=== PATIENT | female | born 1985 | race Two or more races ===

== ENCOUNTER 2018-08-02 10:28 | Emergency (ER) | payer OTHER ==
[2018-08-02] MEDS ORDERED: NS 1,000 ML IV ONE (11:02)
[2018-08-02] MEDS ORDERED: LORazepam 2 MG/ML INJ IVP ONE (11:02)
[2018-08-02] MEDS ORDERED: DEXAMETHASONE 10 MG/ML VIAL IVP ONE (11:02)
--- NOTE | 2018-08-02 11:02 | EDPHY ---
H & P Stated Complaint: BAILEY, n/v Time Seen by Provider: 08/02/18 10:57 HPI/ROS: HPI: This is a 32-year-old female who presents with Chief Complaint: Headache, nausea, vomiting Location: Back of head, base of neck Quality: Pain Duration: Since yesterday evening Signs and Symptoms: no fever, + nausea, + vomiting, no photophobia, no noise sensitivity, no neck stiffness, no ear pain, no tinnitus, no nasal congestion, no sinus pressure, no weakness, no radiation, no aura, no radiation, no dizziness Timing: Acute Severity: Moderate Context: History of migraine headaches presents with sudden onset of headache that occurred at the base of her neck and back of her head that radiates up into the front part of her head that started yesterday evening. She reports that she feels nauseous and has vomited twice. She denies any photophobia, noise sensitivity, fever, neck stiffness, nasal congestion, ear pain. She has had no trauma or injury and denies radiculopathy. No primary care provider. Negative family history for aneurysm. Modifying Factors: None Comment: ROS: A comprehensive 10 system review of systems is otherwise negative aside from elements mentioned in the history of present illness. MEDICAL/SURGICAL/SOCIAL HISTORY: Medical history: Peptic ulcer. Takes oral control pills. Surgical history: Denies Social history: Former smoker. Recently moved to the area from [place]. 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 Family history noncontributory. CONSTITUTIONAL: Tearful, overweight adult white female, awake and alert, no obvious distress HEENT: Atraumatic and normocephalic, PERRL, EOMI. Nares patent; no rhinorrhea; no nasal mucosal edema. Tympanic membranes clear. Oropharynx clear, no exudate and moist pink mucosa. Airway patent. No lymphadenopathy. No meningismus. Cardiovascular: Normal S1/S2, regular rate, regular rhythm, without murmur rub or gallop. PULMONARY/CHEST: Symmetrical and nontender. Clear to auscultation bilaterally. Good air movement. No accessory muscle usage. ABDOMEN: Soft, nondistended, nontender, no rebound, no guarding, no peritoneal signs, no masses or organomegaly. No CVAT. EXTREMITIES: 2/2 pulses, strength 5/5, no deformities, no clubbing, no cyanosis or edema. NEUROLOGICAL: no focal neuro deficits. GCS 15. Cranial nerves 2-12 grossly intact. Speech normal. SKIN: Warm and dry, no erythema. no rash. Good capillary refill. Source: Patient Exam Limitations: No limitations - Personal History Current Tetanus/Diphtheria Vaccine: Unsure Current Tetanus Diphtheria and Acellular Pertussis (TDAP): Unsure - Medical/Surgical History Hx Asthma: No Hx Chronic Respiratory Disease: No Hx Diabetes: No Hx Cardiac Disease: No Hx Renal Disease: No Hx Cirrhosis: No Hx Alcoholism: No Hx HIV/AIDS: No Hx Splenectomy or Spleen Trauma: No Other PMH: peptic ulcer, - Social History Smoking Status: Former smoker Constitutional: Initial Vital Signs Temperature (C) 37 C 08/02/18 10:42 Heart Rate 94 08/02/18 10:42 Respiratory Rate 20 08/02/18 10:42 Blood Pressure 210/165 H 08/02/18 10:42 O2 Sat (%) 97 08/02/18 10:42 O2 Delivery Mode Room Air Allergies/Adverse Reactions: No Known Allergies Allergy (Unverified 08/02/18 10:41) Home Medications: Medication Instructions Recorded Acet/Caffeine/Buta Fioricet 1 each PO Q6 PRN #10 tab 08/02/18 [Fioricet (*)] Bcp 08/02/18 Ondansetron Odt [Zofran Odt 4 mg 4 mg PO Q4 PRN #12 tab 08/02/18 (*)] Medical Decision Making ED Course/Re-evaluation: Vital signs reviewed and show elevated blood pressure upon arrival. IV access and medications ordered Patient given 1 L normal saline, IV Ativan 1 mg, IV Decadron 10 mg, IV promethazine 12.5 mg, IV Toradol 30 mg Patient's headache is likely tension versus migraine No neurological deficits to warrant imaging in the emergency room 1222: Reassessed patient who reports moderate relief of symptoms. Walking back and forth to the bathroom without difficulty. Blood pressure 169/128 1310: reassess patient with even more improvement in symptoms. Blood pressure 137/88 Given a referral to primary care provider and Neurology. Patient requesting headache and nausea medications This patient was seen under the supervision of my secondary supervising physician. I evaluated care for this patient with attending. Discussed this patient with Dr. Villafana. Differential Diagnosis: Headache including but not limited to subarachnoid hemorrhage, migraine headache , tension headache and infectious causes such as meningitis, pharyngitis and sinusitis. - Data Points Medications Given: Discontinued Medications Dexamethasone (Decadron Injection) 10 mg IVP EDNOW ONE Stop: 08/02/18 11:03 Last Admin: 08/02/18 11:31 Dose: 10 mg Sodium Chloride (Ns) 1,000 mls @ 0 mls/hr IV ONCE ONE; Wide Open PRN Reason: Protocol Stop: 08/02/18 11:03 Last Admin: 08/02/18 11:28 Dose: 1,000 mls Ketorolac Tromethamine (Toradol) 30 mg IVP EDNOW ONE Stop: 08/02/18 12:27 Last Admin: 08/02/18 12:29 Dose: 30 mg Lorazepam (Ativan Injection) 1 mg IVP EDNOW ONE Stop: 08/02/18 11:03 Last Admin: 08/02/18 11:29 Dose: 1 mg Promethazine HCl (Phenergan) 12.5 mg IVP ONCE ONE Stop: 08/02/18 11:04 Last Admin: 08/02/18 11:31 Dose: 12.5 mg Departure - Departure Disposition: Home, Routine, Self-Care Clinical Impression: Tension-type headache Qualifiers: Headache chronicity pattern: acute headache Intractability: not intractable Qualified Code(s): G44.209 - Tension-type headache, unspecified, not intractable Condition: Good Instructions: Tension Headache (ED), Acute Headache (ED) Additional Instructions: Rest as much as possible until you are feeling better. Consume a minimum of 8-10 glasses of water or electrolyte fluid replacement drinks that include Gatorade, Powerade, Pedialyte. Eat a bland diet for the next 48 hours and then slowly advance as tolerated. Take Zofran 1 tab every 4 hours as needed for nausea, vomiting. Take Tylenol 650 mg every 4 hr and/or ibuprofen 600 mg with food every 8 hr as needed for pain, headache. Take Fioricet every 6 hr as needed for headache not relieved by Tylenol or ibuprofen. Establish care with primary care provider. A referral has been provided. Return to the ER immediately if you have progressive headaches, neurologic deficits, gait abnormality, visual disturbance, slurred speech, or any other symptom that concerns you. Referrals: Moose Bello DO [Doctor of Osteopathy] - As per Instructions Erich Shah DO [Medical Doctor] - Follow Up Only If Needed Stand Alone Forms: Work Excuse Prescriptions: Acet/Caffeine/Buta Fioricet [Fioricet (*)] 1 each PO Q6 PRN #10 tab PRN Reason: Headache Ondansetron Odt [Zofran Odt 4 mg (*)] 4 mg PO Q4 PRN #12 tab PRN Reason: Nausea/Vomiting, Use 1st
[2018-08-02] MEDS ORDERED: PROMETHAZINE HCL 25 MG/ML INJ IVP ONE (11:03)
[2018-08-02] MEDS ORDERED: KETOROLAC 30 MG/1 ML SDV IVP ONE (12:26)
[2018-08-02 13:02] VITALS: BP 137/88
== END 2018-08-02 13:16 | disposition home or self-care (01) ==
DX: G44.209 Tension-type headache, unspecified, not intractable (principal); E86.9 Volume depletion, unspecified
CPT/HCPCS: 96374; J1100; J1885; J2060; J2550

== ENCOUNTER 2018-08-05 12:28 | Emergency (ER) | payer OTHER ==
--- NOTE | 2018-08-05 14:02 | EDPHY ---
HPI/HX/ROS/PE/MDM Narrative: CHIEF COMPLAINT: Headache HPI: This patient is a 32 year old female with history of peptic ulcers. She was evaluated several days ago, 08/02/18, in this emergency department for headache. This has persisted despite medication, though it did decrease in severity. She saw her PCP Friday and switched medications to Sumatriptan, and has been taking this as prescribed. She has not yet undergone any imaging of her head. Today, around noon, she had "sudden debilitating pain [...] like my head exploded, the worst pain of my life". Her symptoms are bilateral equally. She endorses nausea and a sensation of shaking. She does not generally get headaches and has not had any similar symptoms prior to the past week. She denies ever having symptoms so severe as this afternoon during this past week. She denies family history of headaches. No fever or chills. No chest pain, shortness of breath, diarrhea, urinary complaints, or other associated symptoms. REVIEW OF SYSTEMS: A comprehensive 10 system review of systems is otherwise negative aside from elements mentioned in the history of present illness and medical decision making. PMH: Peptic ulcers. SOCIAL HISTORY: Employed in [employer]. Friends at bedside. Does not abuse tobacco, drugs, or alcohol. PHYSICAL EXAM: General:Patient is alert, crying, curled up in bed. Mildly obese. ENT:Eyes are normal to inspection. ENT inspection normal. Neck: Normal inspection. Full range of motion. Respiratory:No respiratory distress. Breath sounds normal bilaterally. Cardiovascular: Regular rate and rhythm. Strong peripheral pulses. Normal cap refill. Abdomen:The abdomen is nontender to palpation. There are no peritoneal signs. There are normal bowel sounds. Back: Normal to inspection. No tenderness to palpation. Skin: Normal color. No rash. Warm and dry. Extremities: Normal appearance. Full range of motion. Neuro: Oriented x3. Normal motor function. Normal sensory function. (Max Cobian) ED Course: 32 year old female presents with acute exacerbation of headache and nausea, the worst she has ever felt. She is tearful throughout my interview and exam. Patient does not seem meningitic on exam. Plan for CT head without contrast. Plan for labs including CBC, chemistries, BHCG. Plan to administer 1mg IV Dilaudid and 1L IV NS for symptom relief. 15:00 Care of this patient transferred to Dr. Lopez at shift change pending CT results. (Max Cobian) I took over care of this patient at 3:00 p.m.. This patient presents with return of a headache which she describes as severe associated with nausea. She was seen in the emergency department for similar complaint of headache on August 02. Please see above for further details. We are currently awaiting the results of his CT head. CT head without contrast: Essentially negative. The ventricles do appear slightly tight which may coincide with idiopathic intracranial hypertension. Results were discussed with staff radiologist Dr. Josue Isaac. 3:50 p.m., I re-evaluated the patient. She is feeling better but still has a headache. Repeat neurologic Assessment is nonfocal. Be given IV Benadryl, IV Reglan, Decadron and Toradol. I discussed the results of her CT scan with her. I discussed the need for lumbar puncture. She consents. Lumbar puncture will be followed by noncontrast MRI of the brain and MR venogram of the brain. This will be done primarily to evaluate for thrombosis. Patient consents to workup. Procedure: Lumbar puncture. Indication: Worst headache of life. After verbal informed consent from patient explaining the risks including infection, bleeding, and neurologic damage, a lumbar puncture was performed after the patient was prepped and draped in the usual fashion. The back was anesthetized with 1% lidocaine. Opening pressures 190 mm of mercury, upper end of normal. Approximately 12 cc of clear fluid was obtained. Opening pressure was not obtained. There were no complications. The procedure was performed by myself. MRI brain and MR venogram of brain negative studies. No evidence of thrombosis. No papilledema. Results were discussed with Dr. Cheikh Figueroa. 7:20 p.m., the patient was re-evaluated, resting comfortably at this time. Repeat neurologic Assessment is nonfocal. No significant photophobia. She states that her headache has improved significantly. She still complains of a mild headache. I discussed the results of her emergency department workup with her in detail. All of her questions were answered. She does feel comfortable going home at this time and I feel she is safe for discharge. She does have a friend who can come and pick her up. She has a follow-up appointment scheduled with Neurology for next Friday. Return to emergency department precautions were thoroughly reviewed with her. She was up and ambulatory around the emergency department with a normal gait. She was discharged home in good condition with a friend. (Leonarda Lopez) - Data Points Imaging Results: Imaging Impressions Head CT 08/05/18 14:02 Impression: Negative. No intracranial hemorrhage, mass, or sinus disease. Findings discussed with Emergency Department physician, Leonarda Avendaño M.D., on August 05, 2018 at 1533. Brain MRI 08/05/18 16:27 Impression: 1. Normal MRI of the brain without and with contrast. If symptoms worsen, additional imaging may be necessary. Findings discussed with Leonarda Lopez MD at 18:25 hour, 08/05/2018. Head MRA 08/05/18 16:32 Impression: Normal MR venogram of the head. No evidence of sinus thrombosis. Findings discussed with Leonarda Lopez MD at 18:22 hour, 08/05/2018. Laboratory Results: Laboratory Results 08/05/18 14:28 08/05/18 14:28 08/05/18 08/05/18 08/05/18 16:25 16:24 14:28 WBC RBC Hgb Hct MCV MCH MCHC RDW Plt Count MPV Neut % (Auto) Lymph % (Auto) [place] % (Auto) Eos % (Auto) Baso % (Auto) Nucleat RBC Rel Count Absolute Neuts (auto) Absolute Lymphs (auto) Absolute Monos (auto) Absolute Eos (auto) Absolute Basos (auto) Absolute Nucleated RBC Immature Gran % Immature Gran # Sodium Potassium Chloride Carbon Dioxide Anion Gap BUN Creatinine Estimated GFR Glucose Calcium Beta HCG, Qual NEGATIVE CSF Tube Number 4 1 CSF Appearance CLEAR CLEAR (CLEAR) (CLEAR) CSF Color COLORLESS COLORLESS (COLORLESS) (COLORLESS) CSF Supernatant TNP TNP CSF WBC 4 /mm3 /mm3 4 /mm3 /mm3 (0-5) (0-5) CSF RBC 0 /mm3 /mm3 4 /mm3 H /mm3 (0-0) (0-0) CSF Glucose 58 mg/dL mg/dL (50-75) CSF Total Protein 54 mg/dL mg/dL (12-60) 08/05/18 08/05/18 14:28 14:28 WBC 9.49 10^3/uL 10^3/uL (3.80-9.50) RBC 4.95 10^6/uL 10^6/uL (4.18-5.33) Hgb 15.6 g/dL g/dL (12.6-16.3) Hct 45.0 % % (38.0-47.0) MCV 90.9 fL fL (81.5-99.8) MCH 31.5 pg pg (27.9-34.1) MCHC 34.7 g/dL g/dL (32.4-36.7) RDW 12.0 % % (11.5-15.2) Plt Count 199 10^3/uL 10^3/uL (150-400) MPV 11.8 fL H fL (8.7-11.7) Neut % (Auto) 67.0 % % (39.3-74.2) Lymph % (Auto) 24.9 % % (15.0-45.0) [place] % (Auto) 6.3 % % (4.5-13.0) Eos % (Auto) 1.1 % % (0.6-7.6) Baso % (Auto) 0.3 % % (0.3-1.7) Nucleat RBC Rel Count 0.0 % % (0.0-0.2) Absolute Neuts (auto) 6.36 10^3/uL 10^3/uL (1.70-6.50) Absolute Lymphs (auto) 2.36 10^3/uL 10^3/uL (1.00-3.00) Absolute Monos (auto) 0.60 10^3/uL 10^3/uL (0.30-0.80) Absolute Eos (auto) 0.10 10^3/uL 10^3/uL (0.03-0.40) Absolute Basos (auto) 0.03 10^3/uL 10^3/uL (0.02-0.10) Absolute Nucleated RBC 0.00 10^3/uL 10^3/uL (0-0.01) Immature Gran % 0.4 % % (0.0-1.1) Immature Gran # 0.04 10^3/uL 10^3/uL (0.00-0.10) Sodium 138 mEq/L mEq/L (135-145) Potassium 3.6 mEq/L mEq/L (3.5-5.2) Chloride 107 mEq/L mEq/L (97-110) Carbon Dioxide 20 mEq/l L mEq/l (22-31) Anion Gap 11 mEq/L mEq/L (6-14) BUN 15 mg/dL mg/dL (7-23) Creatinine 0.6 mg/dL mg/dL (0.6-1.0) Estimated GFR > 60 Glucose 93 mg/dL mg/dL (70-100) Calcium 9.9 mg/dL mg/dL (8.5-10.4) Beta HCG, Qual CSF Tube Number CSF Appearance CSF Color CSF Supernatant CSF WBC CSF RBC CSF Glucose CSF Total Protein Medications Given: Discontinued Medications Dexamethasone (Decadron Injection) 10 mg IVP EDNOW ONE Stop: 08/05/18 15:55 Last Admin: 08/05/18 16:15 Dose: 10 mg Diphenhydramine HCl (Benadryl Injection) 25 mg IVP EDNOW ONE Stop: 08/05/18 15:55 Last Admin: 08/05/18 16:13 Dose: 25 mg Hydromorphone HCl (Dilaudid) 1 mg IVP EDNOW ONE Stop: 08/05/18 14:04 Last Admin: 08/05/18 14:45 Dose: 1 mg Sodium Chloride (Ns) 1,000 mls @ 0 mls/hr IV EDNOW ONE; Wide Open PRN Reason: Protocol Stop: 08/05/18 14:04 Last Admin: 08/05/18 14:26 Dose: 1,000 mls Ketorolac Tromethamine (Toradol) 30 mg IVP EDNOW ONE Stop: 08/05/18 15:55 Last Admin: 08/05/18 16:13 Dose: 30 mg Metoclopramide HCl (Reglan Injection) 10 mg IVP EDNOW ONE Stop: 08/05/18 15:55 Last Admin: 08/05/18 16:14 Dose: 10 mg Ondansetron HCl (Zofran) 4 mg IVP EDNOW ONE Stop: 08/05/18 16:20 Last Admin: 08/05/18 16:23 Dose: 4 mg Microbiology Results: MICROBIOLOGY 08/05/18 16:24 Cerebral Spinal Fluid Gram Stain - Final General Time Seen by Provider: 08/05/18 13:56 Initial Vital Signs: Initial Vital Signs Temperature (C) 36.3 C 08/05/18 12:34 Heart Rate 65 08/05/18 12:34 Respiratory Rate 20 08/05/18 12:34 Blood Pressure 206/135 H 08/05/18 12:34 O2 Sat (%) 98 08/05/18 12:34 O2 Delivery Mode Room Air Allergies/Adverse Reactions: No Known Allergies Allergy (Verified 08/05/18 12:34) Home Medications: Medication Instructions Recorded Acet/Caffeine/Buta Fioricet 1 each PO Q6 PRN #10 tab 08/02/18 [Fioricet (*)] Bcp 08/02/18 Ondansetron Odt [Zofran Odt 4 mg 4 mg PO Q4 PRN #12 tab 08/02/18 (*)] Departure - Departure Disposition: Home, Routine, Self-Care Clinical Impression: Headache Condition: Good Instructions: Acute Headache (ED) Additional Instructions: Read and follow provided instructions. Follow-up with your neurologist as scheduled next Friday as scheduled. Keep yourself well hydrated. Return to the emergency department for worsening headache, neck pain, nausea and vomiting, confusion, fever or other serious concerns. Referrals: Patient,NotPresent [Primary Care Provider] - As per Instructions Report Scribed for: aMx Cobian Report Scribed by: Rayne Fairbanks Date of Report: 08/05/18 Time of Report: 14:02 Physician Review and Approval Statement: Portions of this note were transcribed by an ED scribe. I personally performed the history, physical exam, and medical decision making; and confirm the accuracy of the information in the transcribed note.
[2018-08-05] MEDS ORDERED: NS 1,000 ML IV ONE (14:03)
[2018-08-05] MEDS ORDERED: HYDROmorphONE/DILAUDID 2 MG/ML INJ IVP ONE (14:03)
[2018-08-05 14:46] LABS: PLATELET COUNT 199 10^3/uL (150-400)
[2018-08-05] MEDS ORDERED: KETOROLAC 30 MG/1 ML SDV IVP ONE (15:54)
[2018-08-05] MEDS ORDERED: DEXAMETHASONE 10 MG/ML VIAL IVP ONE (15:54)
[2018-08-05] MEDS ORDERED: METOCLOPRAMIDE 10 MG/2 ML VIAL IVP ONE (15:54)
[2018-08-05] MEDS ORDERED: ONDANSETRON 4 MG/2 ML VIAL IVP ONE (16:19)
[2018-08-05] MEDS ORDERED: GADOBUTROL 10 ML VIAL IVP ONE (17:25)
[2018-08-05 19:30] VITALS: BP 162/87
== END 2018-08-05 19:30 | disposition home or self-care (01) ==
PROC: 009U3ZX Drainage of Spinal Canal, Percutaneous Approach, Diagnostic (ICD-10-PCS; principal; 2018-08-05)
DX: R51 Headache (principal); R11.0 Nausea; E86.9 Volume depletion, unspecified
CPT/HCPCS: 96374; A9585; J1100; J1170; J1200; J1885; J2405; J2765

== ENCOUNTER 2018-08-10 19:23 | Observation (INO) | payer OTHER ==
[2018-08-10] MEDS ORDERED: fentaNYL 100 MCG/2 ML INJ IVP ONE ×2 (19:26→21:54)
[2018-08-10] MEDS ORDERED: NS 1,000 ML IV ONE (19:26)
[2018-08-10] MEDS ORDERED: METOCLOPRAMIDE 10 MG/2 ML VIAL IVP ONE (19:28)
[2018-08-10 19:41] LABS: PLATELET COUNT 233 10^3/uL (150-400)
--- NOTE | 2018-08-10 20:55 | EDPHY ---
HPI/HX/ROS/PE/MDM Narrative: CHIEF COMPLAINT:Headache HPI: The patient is a 32-year-old female who I saw several days ago for worst headache of life. She returns by EMS for continued worst headache of life. She describes the pain as severe starting at the bottom of her neck and radiating to the top. She states that this is the exact same character of the pain as her previous to ER visits. She states that headache is made significantly worse by sitting up or standing up. She states that this was the case prior to her LP. She denies fever, neck pain or vision changes. No trauma. She has an appointment as an outpatient with neurology tomorrow but her mother states that she has basically become incapacitated and cannot get out of bed. REVIEW OF SYSTEMS: Aside from elements discussed in the HPI, a comprehensive 10-point review of systems was reviewed and is negative. PMH: Includes mild obesity. No history of brain surgery. SOCIAL HISTORY: Works at a [employer]. Denies drug abuse. PHYSICAL EXAM: General:Patient is alert, yelling in pain. ENT:Eyes are normal to inspection. ENT inspection normal. No photophobia noted. Neck: Normal inspection. Full range of motion. Respiratory:No respiratory distress. Breath sounds normal bilaterally. Cardiovascular: Regular rate and rhythm. Strong peripheral pulses. Normal cap refill. Abdomen:The abdomen is nontender to palpation. There are no peritoneal signs. There are normal bowel sounds. Back: Normal to inspection. No tenderness to palpation. Skin: Normal color. No rash. Warm and dry. Extremities: Normal appearance. Full range of motion. Neuro: Oriented x3. Normal motor function. Normal sensory function. MDM: This patient returns for worst headache of life. She has already had an extremely extensive workup here in the emergency department on her previous visit including CT, MRI and LP, all of which were negative. I do not think repeating these tests will add to the clinical picture. I did consider a post LP headache given the increase in her pain with change of position, but the patient tells me that this element of her headache was present prior to the LP. The etiology of her headache is unknown, but given the severity of her pain and failure of outpatient management, I think she needs admission the hospital for pain control and further workup as well as neurology consultation. - Data Points Laboratory Results: Laboratory Results 08/10/18 19:35 08/10/18 19:35 08/10/18 08/10/18 19:35 19:35 WBC 9.07 10^3/uL 10^3/uL (3.80-9.50) RBC 4.92 10^6/uL 10^6/uL (4.18-5.33) Hgb 15.4 g/dL g/dL (12.6-16.3) Hct 45.1 % % (38.0-47.0) MCV 91.7 fL fL (81.5-99.8) MCH 31.3 pg pg (27.9-34.1) MCHC 34.1 g/dL g/dL (32.4-36.7) RDW 12.0 % % (11.5-15.2) Plt Count 233 10^3/uL 10^3/uL (150-400) MPV 10.5 fL fL (8.7-11.7) Neut % (Auto) 57.6 % % (39.3-74.2) Lymph % (Auto) 34.5 % % (15.0-45.0) [place] % (Auto) 6.1 % % (4.5-13.0) Eos % (Auto) 1.3 % % (0.6-7.6) Baso % (Auto) 0.2 % L % (0.3-1.7) Nucleat RBC Rel Count 0.0 % % (0.0-0.2) Absolute Neuts (auto) 5.22 10^3/uL 10^3/uL (1.70-6.50) Absolute Lymphs (auto) 3.13 10^3/uL H 10^3/uL (1.00-3.00) Absolute Monos (auto) 0.55 10^3/uL 10^3/uL (0.30-0.80) Absolute Eos (auto) 0.12 10^3/uL 10^3/uL (0.03-0.40) Absolute Basos (auto) 0.02 10^3/uL 10^3/uL (0.02-0.10) Absolute Nucleated RBC 0.00 10^3/uL 10^3/uL (0-0.01) Immature Gran % 0.3 % % (0.0-1.1) Immature Gran # 0.03 10^3/uL 10^3/uL (0.00-0.10) Sodium 139 mEq/L mEq/L (135-145) Potassium 3.8 mEq/L mEq/L (3.5-5.2) Chloride 111 mEq/L H mEq/L (97-110) Carbon Dioxide 21 mEq/l L mEq/l (22-31) Anion Gap 7 mEq/L mEq/L (6-14) BUN 21 mg/dL mg/dL (7-23) Creatinine 0.7 mg/dL mg/dL (0.6-1.0) Estimated GFR > 60 Glucose 105 mg/dL H mg/dL (70-100) Calcium 9.2 mg/dL mg/dL (8.5-10.4) Medications Given: Discontinued Medications Fentanyl (Sublimaze) 100 mcg IVP EDNOW ONE Stop: 08/10/18 19:27 Last Admin: 08/10/18 19:37 Dose: 100 mcg Sodium Chloride (Ns) 1,000 mls @ 0 mls/hr IV EDNOW ONE; Wide Open PRN Reason: Protocol Stop: 08/10/18 19:27 Last Admin: 08/10/18 19:40 Dose: 1,000 mls Metoclopramide HCl (Reglan Injection) 10 mg IVP EDNOW ONE Stop: 08/10/18 19:29 Last Admin: 08/10/18 19:37 Dose: 10 mg General Time Seen by Provider: 08/10/18 19:23 Initial Vital Signs: Initial Vital Signs Temperature (C) 36.7 C 08/10/18 19:27 Heart Rate 63 08/10/18 19:27 Respiratory Rate 20 08/10/18 19:27 Blood Pressure 150/109 H 08/10/18 19:27 O2 Sat (%) 96 08/10/18 19:27 O2 Delivery Mode Room Air O2 (L/minute) 2 Allergies/Adverse Reactions: No Known Allergies Allergy (Verified 08/10/18 19:30) Home Medications: Medication Instructions Recorded Aspirin/Acetaminophen/Caffeine 1 tab PO DAILY PRN 08/10/18 [Excedrin Extra Strength Caplet] Diazepam [Valium 5 MG (*)] 5 mg PO DAILY PRN 08/10/18 Ethinyl Estradiol/Drospirenone 1 tab PO DAILY 08/10/18 [Juanita 28 Tablet] Ibuprofen [Motrin (*)] 800 mg PO BID PRN 08/10/18 Ondansetron Odt [Zofran Odt 4 mg 4 mg PO Q4 PRN 08/10/18 (*)] Departure - Departure Disposition: [facility] Acute Clinical Impression: Acute headache Condition: Good
[2018-08-10] MEDS ORDERED: fentaNYL 100 MCG/2 ML INJ ONE (21:54)
[2018-08-10] MEDS ORDERED: ONDANSETRON 4 MG/2 ML VIAL IVP PRN (22:15)
[2018-08-10] MEDS ORDERED: PROMETHAZINE HCL 25 MG/ML INJ IVP PRN (22:15)
[2018-08-10] MEDS ORDERED: LORazepam 0.5 MG TAB PO PRN (22:15)
[2018-08-10] MEDS ORDERED: ACETAMINOPHEN 325 MG TAB PO PRN (22:15)
[2018-08-10] MEDS ORDERED: ONDANSETRON DISINTEGRATING 4 MG TAB PO PRN (22:15)
[2018-08-10] MEDS ORDERED: GABAPENTIN 300 MG CAP PO PRN (22:18)
[2018-08-10] MEDS: NS 1,000 ML IV SCH (23:11)
--- NOTE | 2018-08-10 23:25 | PDGENHP ---
History and Physical - Chief Complaint severe headache - History of Present Illness Source-the patient provides history appears reliable. Mother at bedside just recently arrived from floor does been staying with patient. EMR was reviewed and case discussed with ED provider accepting hospitalist JOCELYN - this is a very pleasant 32-year-old female with past medical history significant for peptic ulcer disease (dx 2014) not currently on any therapy, obesity (BMI 30.9) an otherwise healthy who presents emergency department today for the 3rd time in the last 8 days with complaints of severe and intractable headache. Patient without any previous history of migraines or headaches. She reports on 08/01/2018 she developed a severe headache primarily located in the occiput that is pulsatile in nature. Patient reports that standing and walking make her symptoms worsen her pain radiates from the base of her neck and occiput up to the top of her head. She denies any photophobia, phonophobia, visual changes. She denies any numbness or tingling in her extremities. She denies any recent injuries or falls. She has not had any syncopal episodes or loss of consciousness. She notes that during "an episode" she becomes cold clammy and occasionally sweaty. She occasionally has nausea vomiting associated with her symptoms when they are quite severe. Patient denies increased stressors or mood changes. Patient initially seen in the ED on 08/02/2018, 08/05/2018 and again today . During the course of these visits she has received steroids, narcotics, NSAIDs. She reports she receives only temporary relief with the IV medications but her symptoms always return in the or always worse with standing. Upon patient's 2nd ER visit she underwent extensive imaging with CT head, MRI MRA which have been unremarkable. She also underwent an LP that was nondiagnostic. Patient follow up with her PCP prescribed sumatriptan. Patient reports she took several doses of this since that time has not had any relief from her symptoms. Patient was scheduled to have outpatient follow-up with Neurology tomorrow however mother became increasingly concerned as patient has not moved out of bed for the last 24 hr except to go to the bathroom. When patient did get up she was barely able to walk to the bathroom due to severity of her pain. History Information - Allergies/Home Medication List Allergies/Adverse Reactions: No Known Allergies Allergy (Verified 08/10/18 19:30) Home Medications: Aspirin/Acetaminophen/Caffeine [Excedrin Extra Strength Caplet] 1 tab PO DAILY PRN 08/10/18 [Last Taken 08/09/18] Diazepam [Valium 5 MG (*)] 5 mg PO DAILY PRN 08/10/18 [Last Taken 08/10/18 16:00 ] Ethinyl Estradiol/Drospirenone [Juanita 28 Tablet] 1 tab PO DAILY 08/10/18 [Last Taken 08/09/18] Ibuprofen [Motrin (*)] 800 mg PO BID PRN 08/10/18 [Last Taken 08/10/18 19:00] Ondansetron Odt [Zofran Odt 4 mg (*)] 4 mg PO Q4 PRN 08/10/18 [Last Taken 15:00] I have personally reviewed and updated: family history, medical history, social history, surgical history - Past Medical History Additional medical history: PUD in 2014 patient denies any current antacid use. Obesity - current BMI 30.9. Patient reports that she has lost 25 lb since fall. Scoliosis, chronic knee pain without complain of chronic back pain. Patient also reports that she has a leg length discrepancy of a few inches. - Surgical History Reports: no pertinent surgical hx Additional surgical history: Patient denies any surgeries. - Family History Additional family history: Negative for any migraines, headaches or neurologic issues. 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 Review of Systems Review of Systems: ROS: 10pt was reviewed & negative except for what was stated in HPI & below Constitutional: Reports: chills, malaise. Denies: fever EENMT: Reports: no symptoms Cardiac: Reports: no symptoms Respiratory: Reports: shortness of breath (With exacerbation of her headache only.). Denies: cough Gastrointestinal: Reports: vomitting, nausea. Denies: abdominal pain, diarrhea Genitourinary: Reports: no symptoms Muscolosketal: Reports: joint pain. Denies: muscle pain Skin: Reports: no symptoms Neurological: Reports: headache, tremors (Patient reports that she feels like her entire body shaking with exacerbation of her pain but notes that she does not witness any shaking. No reported seizure activity), weakness (Generalized with standing.). Denies: anxiety, depressed, emotional problems, numbness, seizure, tingling Hematologic/Lymphatic: Reports: no symptoms Physical Exam Physical Exam: Selected Entries 08/10/18 19:27 Blood Pressure Automatic Method Heart Rate 63 Respiratory 20 Rate O2 Sat (%) 96 Temperature (C) 36.7 C Blood Pressure 150/109 H Mean Arterial 122 H Pressure (MAP) O2 Delivery Room Air Mode Temperature Oral Source Temp Pulse Resp BP Pulse Ox 36.6 C 69 17 131/82 H 98 08/10/18 23:09 08/10/18 23:09 08/10/18 23:09 08/10/18 23:09 08/10/18 23:09 O2 (L/minute) 2 Lab Data & Imaging Review 08/10/18 19:35 08/10/18 19:35 WBC 9.07 10^3/uL (3.80-9.50) 08/10/18 19:35 RBC 4.92 10^6/uL (4.18-5.33) 08/10/18 19:35 Hgb 15.4 g/dL (12.6-16.3) 08/10/18 19:35 Hct 45.1 % (38.0-47.0) 08/10/18 19:35 MCV 91.7 fL (81.5-99.8) 08/10/18 19:35 MCH 31.3 pg (27.9-34.1) 08/10/18 19:35 MCHC 34.1 g/dL (32.4-36.7) 08/10/18 19:35 RDW 12.0 % (11.5-15.2) 08/10/18 19:35 Plt Count 233 10^3/uL (150-400) 08/10/18 19:35 MPV 10.5 fL (8.7-11.7) 08/10/18 19:35 Neut % (Auto) 57.6 % (39.3-74.2) 08/10/18 19:35 Lymph % (Auto) 34.5 % (15.0-45.0) 08/10/18 19:35 Daniels % (Auto) 6.1 % (4.5-13.0) 08/10/18 19:35 Eos % (Auto) 1.3 % (0.6-7.6) 08/10/18 19:35 Baso % (Auto) 0.2 % (0.3-1.7) L 08/10/18 19:35 Nucleat RBC Rel Count 0.0 % (0.0-0.2) 08/10/18 19:35 Absolute Neuts (auto) 5.22 10^3/uL (1.70-6.50) 08/10/18 19:35 Absolute Lymphs (auto) 3.13 10^3/uL (1.00-3.00) H 08/10/18 19:35 Absolute Monos (auto) 0.55 10^3/uL (0.30-0.80) 08/10/18 19:35 Absolute Eos (auto) 0.12 10^3/uL (0.03-0.40) 08/10/18 19:35 Absolute Basos (auto) 0.02 10^3/uL (0.02-0.10) 08/10/18 19:35 Absolute Nucleated RBC 0.00 10^3/uL (0-0.01) 08/10/18 19:35 Immature Gran % 0.3 % (0.0-1.1) 08/10/18 19:35 Immature Gran # 0.03 10^3/uL (0.00-0.10) 08/10/18 19:35 Sodium 139 mEq/L (135-145) 08/10/18 19:35 Potassium 3.8 mEq/L (3.5-5.2) 08/10/18 19:35 Chloride 111 mEq/L (97-110) H 08/10/18 19:35 Carbon Dioxide 21 mEq/l (22-31) L 08/10/18 19:35 Anion Gap 7 mEq/L (6-14) 08/10/18 19:35 BUN 21 mg/dL (7-23) 08/10/18 19:35 Creatinine 0.7 mg/dL (0.6-1.0) 08/10/18 19:35 Estimated GFR > 60 08/10/18 19:35 Glucose 105 mg/dL (70-100) H 08/10/18 19:35 Calcium 9.2 mg/dL (8.5-10.4) 08/10/18 19:35 Imaging Review: CT Head (Without Contrast) Indication: Headache. Technique: Standard noncontrast head CT protocol utilizing 5-mm thick collimated slices and field- of-view of 23 cm. Dose reduction techniques were utilized. Comparison: None. Findings: The brain is normally developed. No intracranial hemorrhage, mass lesion, swelling, or subdural hematoma. The ventricular system is small in caliber and midline. The meneses and white matter has normal attenuation. No evidence of ischemia. The bones are unremarkable. The paranasal sinuses are clear. The pituitary gland is normal size. The sagittal sinus has normal attenuation. Impression: Negative. No intracranial hemorrhage, mass, or sinus disease. Findings discussed with Emergency Department physician, Leonarda Avendaño M.D., on August 05, 2018 at 1533. Dictated By: Josue Isaac MD MRI of the Brain (Without and With Contrast) 1726 hours Clinical Indication: Worst headache of life. Evaluate for sagittal sinus thrombosis etc, findings consistent with idiopathic intracranial hypertension.. Technique: T1-weighted images were acquired axially and sagittally from the foramen magnum to the vertex. Axial fast inversion recovery, fast T2-weighted, susceptibility weighted imaging, and diffusion-weighted axial images were obtained without contrast. Post contrast axial and coronal images with the uneventful intravenous administration of 8.0 mL Gadavist contrast. Findings: The ventricles, cisterns, and sulci are normal without atrophy, hydrocephalus, midline shift, herniation, or epidural/subdural hematomas. No intracranial hemorrhage or masses. Diffusion weighted images demonstrates no acute infarct. Cerebellar tonsils are in normal position. Pituitary gland is normal in size. Normal signal flow-void in the superior sagittal sinus , basilar artery, and bilateral internal carotid arteries indicating patency. Post-contrast images demonstrate no enhancing lesions or abnormal leptomeningeal enhancement. Paranasal sinuses and mastoid air cells are clear. Impression: 1. Normal MRI of the brain without and with contrast. If symptoms worsen, additional imaging may be necessary. Findings discussed with Leonarda Lopez MD at 18:25 hour, 08/05/2018. Dictated By: Cheikh Figueroa MD MR venogram of the head at 1726 hour History: Severe headache. Evaluate for venous sinus thrombosis Technique: 2-D time of flight in the coronal plane was obtained using gradient echo sequence for MR venogram. Images were reconstructed in multiple planes with maximum intensity projection imaging performed. Findings: There is normal flow seen within the superior sagittal sinus as well as within the transverse sinus and sigmoid sinus bilaterally. The right transverse sinus is dominant with relatively small caliber left transverse sinus of incidental note. The internal cerebral veins drain normally into the great vein of Reddy and straight sinus. There is no evidence of underlying abnormal thrombosis or flow abnormalities. Impression: Normal MR venogram of the head. No evidence of sinus thrombosis. Findings discussed with Leonarda Lopez MD at 18:22 hour, 08/05/2018. Dictated By: Cheikh Figueroa MD Assessment & Plan Assessment: this is a very pleasant 32-year-old female with past medical history significant for peptic ulcer disease (dx 2013) not currently on any therapy, obesity (BMI 30.9) an otherwise healthy who presents emergency department today for the 3rd time in the last 8 days with complaints of severe and intractable headache. #Acute headache (Acute) - current evaluation including nondiagnostic CT head, MRI, MRA. DDx - atypical migraine, tension headache, pseudotumor cerebral a although LP pressure is reported to be upper limits of normal. Baseline labs and beta HCG are unremarkable. Will check a ESR, TSH and FERCHO screen. Patient has been reporting a positional component of her headache prior to her [employer] so blood patches less likely to be helpful. Neurology consultation in the morning. Continue with p.r.n. Medications for pain control at this time. Reviewed imaging studies and laboratories findings with patient and her mother. Plan for this evening will be to focus on pain control pending Neurology recommendations. #Elevated blood pressures without history of hypertension - BPs improved with improved pain control. Previous history of hypertension reported. #Obesity BMI 30.9 - patient reports that she has had intentional weight loss over the last 6 months of approximately 25 lbs. Diet as tolerated. #History of peptic ulcer disease - patient without any current symptoms or abdominal pain. She is not chronically on any PPIs or H2 blockers. She has not had any nausea or vomiting at this time. Will monitor for now. Times p.r.n. FEN - continue with IV fluids. Diet as tolerated. PPX-SCDs. COR - FULL Dispo - patient admitted observation status on the [facility] floor for continued pain control and neuro evaluation as noted above.
[2018-08-10] MEDS: KETOROLAC 30 MG/1 ML SDV IVP PRN (23:26)
[2018-08-11] MEDS: oxyCODONE IR 5 MG TAB PO PRN ×2 (04:38→08:49)
[2018-08-11 05:55] LABS: PLATELET COUNT 214 10^3/uL (150-400)
[2018-08-11] MEDS: KETOROLAC 30 MG/1 ML SDV IVP PRN (07:18)
[2018-08-11] MEDS: NS 1,000 ML IV SCH (07:20)
[2018-08-11 08:02] VITALS: BP 138/86
--- NOTE | 2018-08-11 09:46 | HOSPPROG ---
Hospitalist Progress Note Assessment/Plan: Sammi is a very pleasant 32-year-old female with past medical history significant for peptic ulcer disease (dx 2014) not currently on any therapy, obesity (BMI 30.9) an otherwise healthy who presents emergency department today for the 3rd time in the last 8 days with complaints of severe and intractable headache. Dr Stewart and myself evaluated Sammi together. #Acute headache (Acute) -reviewed her imaging - nothing acute noted -recent LP done which showed LP pressure of 19 -will get a CTA of head and neck to r/o any dissection -her headache started 10 days ago after having a coughing fit -will avoid narcotics, gabapentin scheduled -asa now -hx of smoking, recently quit - #Elevated blood pressures without history of hypertension -BP better now #Obesity BMI 30.9 - patient reports that she has had intentional weight loss over the last 6 months of approximately 25 lbs. Diet as tolerated. #History of peptic ulcer disease -no s/sx of this #plan: to get imaging to r/o any dissection Subjective: Sammi is crying and saying the pain in her head is occipital. Objective: Vital Signs Temp Pulse Resp BP Pulse Ox 36.8 C 67 18 138/86 H 96 08/11/18 08:00 08/11/18 08:00 08/11/18 08:00 08/11/18 08:00 08/11/18 08:00 Laboratory Results 08/11/18 05:10 08/11/18 05:10 08/10/18 08/11/18 08/12/18 05:59 05:59 05:59 Intake Total 1095 Output Total 300 Balance 795 - Physical Exam Constitutional: obese, uncomfortable, No not in pain Eyes: PERRL Ears, Nose, Mouth, Throat: hearing normal Cardiovascular: regular rate and rhythym Respiratory: no respiratory distress Skin: warm Musculoskeletal: full muscle strength Neurologic: other (tearful) Psychiatric: other (crying) ICD10 Worksheet Patient Problems: Problems Problem Status Onset Acute headache Acute
[2018-08-11] MEDS ORDERED: GABAPENTIN 300 MG CAP PO SCH (09:55)
[2018-08-11] MEDS ORDERED: ASPIRIN 81 MG CHEWABLE TAB PO SCH (10:00)
[2018-08-11] MEDS ORDERED: IOHEXOL 300 mgI/ML (OMNIPAQUE) 150 ML BTL IV ONE (10:07)
[2018-08-11] MEDS ORDERED: DIAZEPAM 5 MG TAB PO PRN (11:11)
[2018-08-11] MEDS ORDERED: ACETAMINOPHEN/ASA/CAFFEINE 1 EACH TAB PO PRN (11:11)
[2018-08-11] MEDS: GABAPENTIN 300 MG CAP PO SCH ×2 (11:18→16:12)
[2018-08-11] MEDS ORDERED: DEXAMETHASONE 4 MG/ML VIAL IVP ONE (12:20)
[2018-08-11] MEDS ORDERED: METHOCARBAMOL 750 MG TAB PO PRN (15:57)
[2018-08-11] MEDS ORDERED: PATCH REMOVAL 1 EA PATCH TD SCH (16:00)
[2018-08-11] MEDS ORDERED: LIDOCAINE 4%/MENTHOL 1% PATCH TD SCH (16:00)
--- NOTE | 2018-08-11 18:19 | GDS ---
[f rep st] DISCHARGE SUMMARY DISCHARGE DIAGNOSES: 1. Acute headache. 2. Elevated blood pressure without history of hypertension. 3. Obesity with a body mass index of 30.9. 4. History of peptic ulcer disease. CONSULTATION: Dr. Tomás Stewart with Neurology. HISTORY OF PRESENT ILLNESS: The patient is a very pleasant 32-year-old female with a past medical history significant for peptic ulcer disease diagnosed in 2013, not on any therapy. She presented to the emergency department for the 3rd time in the last 8 days with complaints of severe intractable headache. She has had multiple imaging studies. Dr. Stewart was concerned because her headache was so severe and uncontrollable. She had a CTA of the head and neck. This did not show any type of dissection. She describes that her headache started approximately 10 days ago after having a coughing fit. Nothing has seemed to relieve or exacerbate her headache. Positions do not make it better or worse. It is intermittent and it can come on with a vengeance. In talking with the patient, she recently moved here 4 months ago. She does not have a good support base. Her mother flew out because of the severity of her headaches. The mom said her daughter has gone through a recent break-up with her boyfriend. She moved from the [facility] to [place]. The patient has a very good job and has never suffered from headaches. At this time, we have not found any clear-cut etiology of her headache. A trial of Decadron was given without any improvement. Her headaches do seem to come on quickly and then quickly leave. At times, she can talk without any pain and then she becomes tearful. She will get copies of all her imaging. I reviewed this with Dr. Stewart and the recommendation is if her headaches return to get further evaluation at [facility]. Also, spoke with the patient and her mom, there could be an emotional component to her headache. Could consider therapy or psychiatry evaluation. HOSPITAL COURSE: 1. Acute headache: Reviewed all her imaging, nothing acute was noted. She had an LP done which showed an LP pressure of 19. Reviewed this with Dr. Stewart. This is a normal pressure. She is on scheduled gabapentin, as well as p.r.n. Tylenol and Robaxin. I reviewed all this in detail with the patient and her mom. They will get further followup at [facility] if her headaches persist. 2. Elevated blood pressure without history of hypertension. Blood pressure improved. 3. Obesity. She has a BMI of 30.9. 4. History of peptic ulcer disease. No signs or symptoms. DISCHARGE CONDITION: Stable. Blood pressure is 138/86, heart rate is 67, respiratory rate of 18, O2 saturation on room air 96%, temperature is 36.8 Celsius. MEDICATIONS AT DISCHARGE: Please see the EMR. DISCHARGE INSTRUCTIONS: 1. To try acupuncture to see if this may help her headaches. 2. Take copies of her brain imaging and if her headaches continue, follow up with [facility]. 3. To stay well hydrated. 4. A script for Robaxin and gabapentin were given to see if this may help with her headaches. 5. An FERCHO lab is pending. To have her primary care doctor follow up with this. /[id number]/MODL MTDD
--- NOTE | 2018-08-11 19:59 | GCON ---
[f rep st] CONSULTATION NEUROLOGY CONSULT REFERRING PHYSICIAN: Stephanie Cook MD CHIEF COMPLAINT: Headache. HISTORY OF PRESENT ILLNESS: Ms. 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 She is single and has a fairly healthy lifestyle outside of being a previous smoker. She quit around 3 weeks ago. She denies any physical, emotional or sexual trauma in the past. She does not have a history of significant headaches. There is no significant family history. The history, as explained to me, is that, around 10 days ago, she had a severe coughing fit. She states that, ever since the coughing bout, she had this onset of the headache which is a biposterior, maximal right, throbbing, severe, waxing and waning type headache. No focal neurologic symptoms. No aura or vomiting, It has not resolved since after the coughing spell. She has had 3 ED visits on August 02, August 05, August 10 and was admitted. She has had an extensive workup thus far with head CT without contrast on August 05, 2018 which was negative. There was no evidence of subarachnoid hemorrhage. She also had MR venogram of the head, which was negative for venous sinus thrombosis. Then again, on August 05, 2018, she had a normal brain MRI with and without contrast. She also had a lumbar puncture which showed 4 white blood cells, no RBCs. It was colorless. No xanthochromia. Her opening pressure was 19 cm of water, which was normal, and certainly normal for her elevated body mass index. She has significant pain type behaviors with screaming in pain which her mother showed me a video of. REVIEW OF SYSTEMS: 10 pt systems was done. Only pertinent to the HPI. There is no other pertinent history such as stimulant abuse or recent neck trauma, etc. For her past medical history, social history, home medications, allergies, see Dr. Cook's note. PHYSICAL EXAM: VITAL SIGNS: Blood pressure now is 130s over 80s. She is afebrile at 36.6, heart rate in the 70s. General: She is in distress and crying and screaming throughout the interview due to pain. NEUROLOGIC : On cranial nerve exam, face is symmetric and has full strength. Facial sensation is normal. Extraocular movements are full. Tongue is midline. On motor exam, she has no focal weakness. Tone is normal. Sensation to light touch is normal in all 4 extremities. Coordination is normal [id number] bilaterally. Essentially, she has a normal neurologic exam. It was difficult for her to participate because of her crying and screaming during the exam. IMPRESSION/PLAN: 1. Headache. We will order a STAT CTA of the head and neck to exclude dissection because of the history of coughing initiating this. We will start her on a baby aspirin prophylactically. We will discontinue narcotics to avoid propagation of headaches. We will schedule gabapentin 300 mg - 3 times daily. We discussed R/ B/A of gabapentin. We will review angiography results as soon as they are available to make further recommendations. She has already been started on aspirin in any case. I will be in close touch with the hospitalist for further treatment and diagnostic recommendations based on her angiography results. We will follow up on the above. Seventy total minutes floor time reviewing history , 3 ER visits, imaging, over 50% in counseling and coordination of care. ADDENDUM: CTA head/neck were negative for dissection. /[id number]/MODL MTDD
== END 2018-08-11 18:21 | disposition home or self-care (01) ==
LOC: EDUNIT# → F3E 23:04
PROVIDERS: ADMIT Internal Medicine; ATTEND Internal Medicine
DX: R51 Headache (principal); R03.0 Elevated blood-pressure reading, without diagnosis of hypertension; E66.9 Obesity, unspecified; K27.9 Peptic ulcer, site unspecified, unspecified as acute or chronic, without hemorrhage or perforation; Z68.30 Body mass index [BMI] 30.0-30.9, adult; Z87.891 Personal history of nicotine dependence
CPT/HCPCS: 70496; 70498; G0378; J1100; J1885; J2405; J2765; J3010; Q9967

== ENCOUNTER 2018-08-18 06:55 | Emergency (ER) | payer OTHER ==
[2018-08-18] MEDS ORDERED: KETOROLAC 30 MG/1 ML SDV IVP ONE (07:22)
--- NOTE | 2018-08-18 07:24 | EDPHY ---
HPI/HX/ROS/PE/MDM Narrative: CHIEF COMPLAINT: Headache HISTORY OF PRESENT ILLNESS: The patient is a 32 y/o female returning for the 4th time this month complaining of a recurrent headache for the last 2 weeks. She's had extensive work up for this here including head CT, head CTA, neck CT, brain MRA, lumbar puncture, neurology consultation, and treatments including steroids, narcotics, and NSAIDs. She recently moved here 4 months ago following a breakup with her boyfriend and the patient's mother believed there could be an emotional component to her headache per discharge summary 08/11/18. Neurologist recommended evaluation at [facility] if her headaches returned, but she has not done this yet. Since discharge, it sounds like she has been managing okay and has been getting massage and acupuncture to manage symptoms. Today, her headache became severe again and she called 911. She was ambulatory on scene for EMS and walked with them to the ambulance. No vision changes, speech difficulty, weakness, fever. No history of severe headaches prior to this month. REVIEW OF SYSTEMS: A 10 point review of systems was performed and is negative with the exception of the elements mentioned in the history of present illness. PHYSICAL EXAM: HR, BP, O2 Sat, RR. Temp noted General Appearance: Alert, well hydrated, appropriate, and non-toxic appearing. Intermittently screaming and talking calmly. Head: Atraumatic without scalp tenderness or obvious injury Eyes: Pupils equal, round, reactive to light and accommodation, EOMI, no trauma , no injection. Ears: Clear bilaterally, no perforation, normal landmarks Nose: Atraumatic, no rhinorrhea, clear. Throat: There is no erythema or exudates, no lesions, normal tonsils, mucus membranes moist. Neck: Supple, non-tender, no lymphadenopathy. Respiratory: No retractions, no distress, no wheezes, and no accessory muscle use. Lungs are clear to auscultation bilaterally. Cardiovascular: Regular rate and rhythm, no murmurs, rubs, or gallops. Good capillary refill all extremities. Gastrointestinal: Abdomen is soft, non-tender, non-distended, no masses, no rebound, no guarding, no peritoneal signs. Musculoskeletal: Normal active ROM of all extremities, atraumatic. Neurological: Alert, appropriate, and interactive. The patient has non-focal cranial nerves, motor, sensory, and cerebellar exam. Skin: No rashes, good turgor, no nodules on palpation. PAST MEDICAL HISTORY: Headaches with negative extensive prior workup Jul 2018, obesity, peptic ulcer disease. PAST SURGICAL HISTORY: Denies SOCIAL HISTORY: Employed. Recently moved here, no local support. Former smoker. Prior medical records reviewed including admission 08/10/18 for headache, Dr. Stewart neurology consultation note 08/11/18. DIFFERENTIAL DIAGNOSIS: The differential diagnosis for the patient's headache included but was not limited to somatization syndrome, borderline personality disorder, conversion disorder, subarachnoid hemorrhage, migraine headache, tension headache and infectious causes such as meningitis, pharyngitis and sinusitis. MEDICAL DECISION MAKING: This is a 32 y/o female who returns for her 4th visit in the last 2 weeks complaining of a recurrent headache. Extensive prior work up for this has been negative. Neurology consultation during prior admission advised discontinuation of narcotics to avoid propagation of headaches and University evaluation if headaches recurred. She is intermittently screaming and calm during assessment. Neuro exam is nonfocal. She is afebrile. As she's had multiple neuroimaging studies for the same symptoms, I do not think further imaging today is warranted. Plan for symptomatic treatment with 30mg IV Toradol as well as psychiatric consultation. Standard clearance labs ordered. Labs unremarkable. Plan for psychiatric evaluation. [facility] has evaluated patient and has no specific recommendations. Patient did not express interest in outpatient mental health resources. Patient is claiming she cannot walk to the bathroom, but has been observed walking today on multiple occasions. Patient is now bearing weight with both legs, but walking with an inconsistent limp. Case management looked into scheduling an appointment for the patient with [facility], but they are unable to schedule an appointment until November. Patient will be discharged with standard headache care and follow up instructions. She understands she needs to follow up with headache specialist at [facility] as previously directed by her neurologist. Return precautions discussed. - Data Points Laboratory Results: Laboratory Results 08/18/18 07:40 08/18/18 07:40 08/18/18 08/18/18 08/18/18 07:40 07:40 07:40 WBC RBC Hgb Hct MCV MCH MCHC RDW Plt Count MPV Neut % (Auto) Lymph % (Auto) [place] % (Auto) Eos % (Auto) Baso % (Auto) Nucleat RBC Rel Count Absolute Neuts (auto) Absolute Lymphs (auto) Absolute Monos (auto) Absolute Eos (auto) Absolute Basos (auto) Absolute Nucleated RBC Immature Gran % Immature Gran # Sodium 137 mEq/L mEq/L (135-145) Potassium 4.5 mEq/L mEq/L (3.5-5.2) Chloride 109 mEq/L mEq/L (97-110) Carbon Dioxide 18 mEq/l L mEq/l (22-31) Anion Gap 10 mEq/L mEq/L (6-14) BUN 13 mg/dL mg/dL (7-23) Creatinine 0.5 mg/dL L mg/dL (0.6-1.0) Estimated GFR > 60 Glucose 101 mg/dL H mg/dL (70-100) Calcium 9.1 mg/dL mg/dL (8.5-10.4) Beta HCG, Qual NEGATIVE Specimen Hemolysis 113 Salicylates < 1.0 mg/dL L mg/dL (2.0-20.0) Urine Opiates Screen NEGATIVE (NEGATIVE) Acetaminophen 23 mcg/mL mcg/mL (10-30) Urine Barbiturates NEGATIVE (NEGATIVE) Ur Phencyclidine Scrn NEGATIVE (NEGATIVE) Ur Amphetamine Screen NEGATIVE (NEGATIVE) U Benzodiazepines Scrn NEGATIVE (NEGATIVE) Urine Cocaine Screen NEGATIVE (NEGATIVE) U Marijuana (THC) Screen NON-NEGATIVE H (NEGATIVE) Ethyl Alcohol < 10 mg/dL mg/dL (0-10) 08/18/18 07:40 WBC 8.30 10^3/uL 10^3/uL (3.80-9.50) RBC 4.70 10^6/uL 10^6/uL (4.18-5.33) Hgb 14.4 g/dL g/dL (12.6-16.3) Hct 41.5 % % (38.0-47.0) MCV 88.3 fL fL (81.5-99.8) MCH 30.6 pg pg (27.9-34.1) MCHC 34.7 g/dL g/dL (32.4-36.7) RDW 11.9 % % (11.5-15.2) Plt Count 164 10^3/uL 10^3/uL (150-400) MPV 11.0 fL fL (8.7-11.7) Neut % (Auto) 56.9 % % (39.3-74.2) Lymph % (Auto) 36.1 % % (15.0-45.0) [place] % (Auto) 5.2 % % (4.5-13.0) Eos % (Auto) 1.0 % % (0.6-7.6) Baso % (Auto) 0.4 % % (0.3-1.7) Nucleat RBC Rel Count 0.0 % % (0.0-0.2) Absolute Neuts (auto) 4.73 10^3/uL 10^3/uL (1.70-6.50) Absolute Lymphs (auto) 3.00 10^3/uL 10^3/uL (1.00-3.00) Absolute Monos (auto) 0.43 10^3/uL 10^3/uL (0.30-0.80) Absolute Eos (auto) 0.08 10^3/uL 10^3/uL (0.03-0.40) Absolute Basos (auto) 0.03 10^3/uL 10^3/uL (0.02-0.10) Absolute Nucleated RBC 0.00 10^3/uL 10^3/uL (0-0.01) Immature Gran % 0.4 % % (0.0-1.1) Immature Gran # 0.03 10^3/uL 10^3/uL (0.00-0.10) Sodium Potassium Chloride Carbon Dioxide Anion Gap BUN Creatinine Estimated GFR Glucose Calcium Beta HCG, Qual Specimen Hemolysis Salicylates Urine Opiates Screen Acetaminophen Urine Barbiturates Ur Phencyclidine Scrn Ur Amphetamine Screen U Benzodiazepines Scrn Urine Cocaine Screen U Marijuana (THC) Screen Ethyl Alcohol Medications Given: Discontinued Medications Ketorolac Tromethamine (Toradol) 30 mg IVP EDNOW ONE Stop: 08/18/18 07:23 Last Admin: 08/18/18 07:34 Dose: 30 mg General Initial Vital Signs: Initial Vital Signs Temperature (C) 36.5 C 08/18/18 07:02 Heart Rate 64 08/18/18 07:02 Respiratory Rate 18 08/18/18 07:02 Blood Pressure 163/110 H 08/18/18 07:02 O2 Sat (%) 98 08/18/18 07:02 O2 Delivery Mode Room Air Allergies/Adverse Reactions: No Known Allergies Allergy (Verified 08/18/18 07:09) Home Medications: Medication Instructions Recorded Aspirin/Acetaminophen/Caffeine 1 tab PO DAILY PRN 08/10/18 [Excedrin Extra Strength Caplet] Diazepam [Valium 5 MG (*)] 5 mg PO DAILY PRN 08/10/18 Ethinyl Estradiol/Drospirenone 1 tab PO DAILY 08/10/18 [Juanita 28 Tablet] Ibuprofen [Motrin (*)] 800 mg PO BID PRN 08/10/18 Ondansetron Odt [Zofran Odt 4 mg 4 mg PO Q4 PRN 08/10/18 (*)] Gabapentin [Neurontin 300 MG (*)] 300 mg PO TID #30 cap 08/11/18 Lidocaine 4%/Menthol 1% [Icy Hot 1 patch TD DAILY patch 08/11/18 Lidocaine/Menthol 4%/1% Patch (*)] Methocarbamol [Robaxin 750 mg (*)] 750 mg PO TID PRN #21 tab 08/11/18 Patch Removal 1 ea TD DAILY21 patch 08/11/18 Departure - Departure Disposition: Home, Routine, Self-Care Clinical Impression: Acute headache Qualifiers: Headache type: unspecified Intractability: not intractable Qualified Code(s): R51 - Headache Condition: Good Instructions: Acute Headache (ED) Additional Instructions: Follow up with headache specialist at [facility] as directed by your neurologist. Consider following up with [facility] as well. Return for worsening of condition. Referrals: Tomás Stewart MD [Medical Doctor] - As per Instructions Report Scribed for: Trey Haskins Report Scribed by: Magi Medina Date of Report: 08/18/18 Time of Report: 07:30
[2018-08-18 07:54] LABS: PLATELET COUNT 164 10^3/uL (150-400)
[2018-08-18 08:08] VITALS: BP 182/96
--- NOTE | 2018-08-18 09:01 | ASMTLCPROG ---
Notes Note: Notes: Was asked by ED provider, Trey Haskins MD to meet with pt to see if pt might be interested in discussing mental health counseling referral options with pt. Reviewed recent [facility] records r/t 08/10/18 medical floor admission for complaints of severe intractable headaches with unclear etiology. Met with pt and introduced self to pt. Pt was polite and cooperative. She was laying on gurney bed on her side, frequently moaning in pain she reported was from her headache. Pt confirmed having come to [place] from [place] about 4 months ago when her job flew her here to see if she would like being in [place]. 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 She confirmed having gone through a fairly recent breakup with a boyfriend. Pt denied having any feelings of depression or suicidal thoughts, only that she wished her headache would "go away". Pt reported not having followed up yet with [facility] as had been earlier recommended upon her medical discharge on 08/10/18. When asked if she would be interested in referral information to a mental health professional, pt stated "I don't care." Pt may have possible psychosomatic components related to her recent onset of severe intractable headaches. Provided update on my conversation with pt to Trey Haskins MD. Date Signed: 08/18/2018 09:00 AM Electronically Signed By:Cory Casarez
--- NOTE | 2018-08-18 17:01 | ASMTCMCOM ---
CM Note CM Note Notes: Requested to assist patient w/making a follow-up appt at [facility] Dept of Neurology and their Headache/Pain Medicine Clinic ([phone]). CM called the [facility] and spoke w/a law firm receptionist who said their next available appt is not until early November. Pt provided a print-out of the [facility]ache Clinic contact info, referral process, etc. Pt strongly encouraged to call and schedule an appt but also to request to be on their cancellation list so that she might get an earlier appt. Pt also provided info on local pain mgmt clinics in [place], including [facility]. Pt was also referred to Dr Stewart since he saw her during the last admission. Pt was also provided a [facility] Primary Care Clinic pamphlet and encouraged to establish a PCP if she continues to stay in [place]. Pt stabilized and discharged home. Pt able to pay for her own cab ride home. See this visit's ED RN Notes and TLC Report, as well as notes, H&Ps, etc from past visits for additional info If pt presents to the ED again and/or gets admitted again, please consider placing a Behavioral Health RN consult order. CM available for further assistance if needed. Date Signed: 08/18/2018 05:00 PM Electronically Signed By:Naomy Alejandro RN
--- NOTE | 2018-08-18 17:01 | ASDISCHSUM ---
Discharge Information Plan Status:Home with No Needs Medically Cleared to Leave: Discharge Date:08/18/2018 10:12 AM CM D/C Disposition:Home, Routine, Self-Care ADT D/C Disposition:Home, Routine, Self-Care Projected Discharge Date:08/18/2018 10:12 AM Transportation at D/C:Taxicab Discharge Delay Reason: Follow-Up Date:08/18/2018 10:12 AM Discharge Slot: Final Diagnosis: Placement Information Patient Contact Information Contact Name:EUGENIO Relationship:Mother Address: Work Phone: City: [facility] Phone: State/Zip Code: Email: Financial Information Financial Class:HMO and PPO Plans Primary Plan Desc:[employer] PPO POS HMO SIG ADM Primary Plan Number:[id number] Secondary Plan Desc: Secondary Plan Number: Assessment Information TLC Progress Note Notes Note: Notes: Was asked by ED provider, Trey Haskins MD to meet with pt to see if pt might be interested in discussing mental health counseling referral options with pt. Reviewed recent [facility] records r/t 08/10/18 medical floor admission for complaints of severe intractable headaches with unclear etiology. Met with pt and introduced self to pt. Pt was polite and cooperative. She was laying on [employer] bed on her side, frequently moaning in pain she reported was from her headache. Pt confirmed having come to [place] from [place] about 4 months ago when her job flew her here to see if she would like being in [place]. 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 She confirmed having gone through a fairly recent breakup with a boyfriend. Pt denied having any feelings of depression or suicidal thoughts, only that she wished her headache would "go away". Pt reported not having followed up yet with [facility] as had been earlier recommended upon her medical discharge on 08/10/18. When asked if she would be interested in referral information to a mental health professional, pt stated "I don't care." Pt may have possible psychosomatic components related to her recent onset of severe intractable headaches. Provided update on my conversation with pt to Trey Haskins MD. Date Signed: 08/18/2018 09:00 AM Electronically Signed By:Cory Casarez [facility] CM Progress Note CM Note CM Note Notes: Requested to assist patient w/making a follow-up appt at [facility] Dept of Neurology and their Headache/Pain Medicine Clinic ([phone]). CM called the [facility] and spoke w/a radio aerial installer who said their next available appt is not until early November. Pt provided a print-out of the [facility]ache Clinic contact info, referral process, etc. Pt strongly encouraged to call and schedule an appt but also to request to be on their cancellation list so that she might get an earlier appt. Pt also provided info on local pain mgmt clinics in [place], including [facility]. Pt was also referred to Dr Stewart since he saw her during the last admission. Pt was also provided a [facility] Primary Care Clinic pamphlet and encouraged to establish a PCP if she continues to stay in [place]. Pt stabilized and discharged home. Pt able to pay for her own cab ride home. See this visit's ED RN Notes and TLC Report, as well as notes, H&Ps, etc from past visits for additional info If pt presents to the ED again and/or gets admitted again, please consider placing a Behavioral Health RN consult order. CM available for further assistance if needed. Date Signed: 08/18/2018 05:00 PM Electronically Signed By:Naomy Alejandro RN Intervention Information
== END 2018-08-18 10:12 | disposition home or self-care (01) ==
LOC: EDUNIT#
DX: R51 Headache (principal)
CPT/HCPCS: 80305; 96374; G0480; J1885

== ENCOUNTER → 2018-11-20 | Outpatient (CLI) | payer OTHER | LOC: FIMAGING 09:22 ==